=== PATIENT | male | born 1995 | race Caucasian/White ===

== ENCOUNTER 2024-02-28 22:58 | Emergency (ER) | payer MEDICAID, SELFPAY ==
[2024-02-28 22:59] VITALS: BP 157/98; PULSE 101; RESP 18; TEMP 36.3; O2SAT 98; BMI 29.6
--- NOTE | 2024-02-28 23:07 | EX.ED.DYSGE1 ---
HPI History of Present Illness Chief Complaint: GI Bleed [facility] Medical History (Updated 02/28/24 @ 23:35 by Darlene Ribeiro) Normal colonoscopy Home Medications ?Medication ?Instructions ?Recorded ?Last Taken ?Type No Known/Unobtainable [No Known 11/11/16 Unknown History Home Medications] Allergy/AdvReac Type Severity Reaction Status Date / Time No Known Allergies Allergy Verified 02/28/24 22:58 Social History Smoking Status: Never smoker EXAM Physical Exam Const Vital Signs: 02/28/24 22:59 Temperature 97.4 F L Temperature Source Temporal Pulse Rate 101 H Respiratory Rate 18 Blood Pressure 157/98 H Blood Pressure Mean 117 Pulse Ox 98 Oxygen Delivery Method Room Air MDM MDM MDM Narrative Medical decision making narrative: HISTORY OF PRESENT ILLNESS: 28-year-old male presents concern for GI bleed. Notes he started spitting up blood clots. Has had multiple scopes and biopsies with no results. Notes abdominal pain. Notes chronic abdominal pain for years. Notes he seen GI doctors in [place], [place], [place] and [place]. He is unsure which medicine they prescribed in the past but states they did not work. He notes pain worse over the last 4 days. He denies vomiting but notes spitting up blood. Denies dark stools, diarrhea. Denies history abdominal surgeries but notes multiple scopes. No urinary complaints. REVIEW OF SYSTEMS: Pertinent positives: Abdominal pain, hematemesis Pertinent negatives: Fever, chest pain PHYSICAL EXAM: Nursing triage notes reviewed, Vital signs reviewed Constitutional: please see mdm HENT: MMM Eyes: Pupils equal round and reactive to light, Extraocular muscles intact Neck: No stridor, no JVD, full neck ROM Lungs: Clear to auscultation, No wheezing or rales. No increased work of breathing, no conversational dyspnea, no accessory muscle use, no nasal flaring. No respiratory distress noted Heart: Regular rate and rhythm, No murmurs, No rubs and No gallops, 2+ distal pulses (radial, femoral, posterior tibial) in all extremities Abdomen: Soft, there is no tenderness, rigidity, rebound or guarding, no obvious peritoneal signs, no palpable pulsatile abdominal masses, no auscultated abdominal bruit : No CVAT Extremities: No edema Rectal: Performed supply chain procurement manager Lily ARGUETA present shows dark stool but no active bleeding or hemorrhoids or fissures. Neuro: No focal neurological deficits, cranial nerves II through XII intact, 5/5 strength in all extremities. Intact sensation to light touch in all extremities, 2+ reflexes bilateral patella tendons. Normal gait. No ataxia. Skin: No rash or lesions noted MEDICAL DECISION MAKING: Chief Complaint: GI bleed, hematemesis External records reviewed: Records reviewed: Reviewed [facility] records: Baseline hemoglobin 15.9 Factors affecting care: Eosinophilic esophagitis, blood in stool Social determinants of health: Denies drug use History obtained from others: none Consults: none MDM Narrative: Patient was initially hemodynamically stable, afebrile and nontoxic-appearing. Bowel believe was benign I considered perforation obstruction. I considered the following differential diagnosis: GI bleed, severe anemia, perforation, obstruction, acute pancreatitis, hepatobiliary pathology ALL IMAGES (IF OBTAINED) HAVE BEEN PERSONALLY REVIEWED AND INTERPRETED BY MYSELF. Stool occult sample negative, no evidence of GI bleed CBC without leukocytosis, severe anemia, no thrombocytopenia. Lipase is wnl indicating no pancreatic inflammation. BMP without evidence of significant electrolyte abnormalities, no anion gap, no acute kidney injury. LFTs show no evidence of hepatobiliary pathology. Repeat abdominal exam being benign. No clear life-limiting etiology could be ascertained. Patient is appropriate for outpatient GI follow-up with instructions to continue taking already prescribed medicines including omeprazole. The patient and/or family, caregivers express understanding. The patient and/or family, caregivers agrees with the plan. Shared decision making: I will have a discussion with the patient and or visitors regarding risk/benefits of further testing or admission. They will be made aware of of the risk/benefits inherent in this decision they will be given the opportunity to voice understanding. Total critical care time today provided was at least 0 minutes. This excludes separately billable procedures. Critical care time (if documented) is secondary to the patient having high probability of clinically significant/life threatening deterioration in the patient's condition which required my urgent intervention. Impression: 1. Abdominal pain 2. History of eosinophilic esophagitis 3. Hematemesis Dispo: Discharge This note was generated with [employer] dictation software. It may contain incorrect words, spelling, and punctuation that were not noted in review of the chart prior to signing. Lab Data Labs: Laboratory Results - last 24 hr 02/28/24 23:48 WBC 10.6 RBC 4.70 Hgb 14.1 Hct 42.4 MCV 90.2 MCH 30.0 MCHC 33.3 RDW Std Deviation 43.5 RDW Coeff of Brooke 13.2 Plt Count 405 MPV 9.9 Immature Gran % (Auto) 0.700 Neut % (Auto) 53.1 Lymph % (Auto) 36.0 [place] % (Auto) 6.3 Eos % (Auto) 3.5 Baso % (Auto) 0.4 Absolute Neuts (auto) 5.6 Absolute Lymphs (auto) 3.80 Nucleated RBC % 0 Sodium 142 Potassium 3.8 Chloride 108 H Carbon Dioxide 29.0 Anion Gap 5 BUN 12 Creatinine 1.01 Estim Creat Clear Calc 112.18 Est GFR (MDRD) Af Amer 115 Est GFR (MDRD) Non-Af 95 BUN/Creatinine Ratio 11.9 Glucose 98 Calcium 9.2 Total Bilirubin 0.20 Direct Bilirubin 0.08 AST 16 ALT 26 Alkaline Phosphatase 103 Total Protein 7.3 Albumin 3.8 Globulin 3.5 Lipase 27 Discharge Plan Triage Chief Complaint: GI Bleed ED Provider: Ronny Capps Dx/Rx/DC Orders Instructions: Eosinophilic Esophagitis (EoE) Prescriptions: No Action No Known Home Medications Primary Care Provider: Barry Duke Referrals: Bhupinder Segovia DO [Med Staff - Active Staff] - Activity Restrictions/Additional Instructions: Thank you for trusting us with your care today! Please take Tylenol (2 pills, 650 mg), ibuprofen (2 pills, 400 mg) every 6 hours as needed for pain and fever control. Please continue taking already prescribed omeprazole. Please return to the emergency department if your symptoms change or worsen. Please follow with local GI doctor (Dr. Segovia) for further outpatient evaluation and management. Print Language: Tajik Disposition Disposition: Home, Self Care
[2024-02-28] MEDS: 0.9% Normal Saline (1000mL) 1,000 ML 1000 ML IV (23:44)
[2024-02-28] MEDS: Ketorolac 15 MG/ML Vial IV (23:44)
[2024-02-28] MEDS: Ondansetron 4 MG/2 ML Vial IV (23:44)
[2024-02-29 00:15] LABS: Absolute Neutrophil Count 5.6 X10^3/uL (2.0-7.7); Basophil# 0.04 X10^3/uL; Basophil% 0.4 % (0-1); Eosinophil# 0.37 X10^3/uL; Eosinophils% 3.5 % (0-5); Hematocrit 42.4 % (40-54); Hemoglobin 14.1 g/dL (13.0-16.5); Mean Corp Hgb Conc 33.3 g/dL (32-36); Mean Corpuscular Volume 90.2 fL (80-94); Mean Platelet Vol. 9.9 fl (6.2-12.0); Monocyte# 0.66 X10^3/uL; Monocyte% 6.3 % (0-10); NRBC Flagged by Analyzer 0 % (0-5); Neutrophil # 5.62 X10^3/uL (2.7-7.7); Neutrophil % 53.1 % (47-70); Platelet Count 405 K/mm3 (150-450); RBC Distribution Width CV 13.2 % (11.6-14.6); RBC Distribution Width SD 43.5 fl (35.1-43.9); White Blood Count 10.6 K/mm3 (4.4-11.0)
[2024-02-29 00:26] LABS: AST(SGOT) 16 U/L (15-37); Alanine Aminotransfer ALT/SGPT 26 U/L (16-61); Albumin, Serum 3.8 g/dL (3.2-5.0); Alkaline Phosphatase 103 U/L (45-117); Anion Gap 5 (5-15); BUN 12 mg/dL (7-18); BUN/Creat Ratio 11.9 RATIO (10-20); Bilirubin, Direct 0.08 mg/dL (0.00-0.30); Calcium,Total 9.2 mg/dL (8.5-10.1); Chloride 108 mmol/L (98-107); Creatinine, Serum 1.01 mg/dL (0.70-1.30); EST Glomerular Filtration Rate 95 mL/min (>60); Est Glom Filt Rate - Afr Amer 115 mL/min (>60); Estimated Creatinine Clearance 112.18 ml/min; Globulin 3.5 g/dL (2.2-4.2); Glucose 98 mg/dL (74-106); Lipase 27 U/L (13-75); Potassium 3.8 mmol/L (3.5-5.1); Protein, Total 7.3 g/dL (6.4-8.2); Sodium Level 142 mmol/L (136-145)
[2024-02-29 00:37] VITALS: BP 133/93; PULSE 100; RESP 25; TEMP 37.1; O2SAT 97
== END 2024-02-29 00:40 | disposition home or self-care (01) ==
PROVIDERS: Emergency Provider Emergency Medicine; PCP Family Medicine; Visit Provider Emergency Medicine
DX: R10.9 Unspecified abdominal pain (principal); K20.0 Eosinophilic esophagitis; K92.0 Hematemesis
CPT/HCPCS: 80048; 80076; 82274; 83690; 85025; 96361; 96374; 96375; 99285; J7030; J2405